=== PATIENT | male | born 1990 | race Caucasian/White ===

== ENCOUNTER 2021-10-08 11:38 | Emergency (ER) | payer OTHER ==
[~2021-10-08] VITALS: Ht 180.3 cm; Wt 68.0 kg
[2021-10-08 12:21] LABS: BASOPHILS ABSOLUTE AUTO 0.02 K/mm3 (0.00-0.23); BASOPHILS PERCENT AUTO 0 % (0-2); EOSINOPHILS ABSOLUTE AUTO 0.01 K/mm3 (0.00-0.68); EOSINOPHILS PERCENT AUTO 0 % (0-6); Hematocrit 46.6 % (37.0-53.0); Hemoglobin 15.4 g/dL (13.5-17.5); IMMATURE GRAN ABSOLUTE AUTO 0.03 K/mm3 (0.00-0.10); IMMATURE GRAN PERCENT AUTO 0 % (0-1); LYMPHOCYTES ABSOLUTE AUTO 0.89 K/mm3 (0.84-5.20); LYMPHOCYTES PERCENT AUTO 7 % (21-46); MONOCYTES ABSOLUTE AUTO 0.96 K/mm3 (0.16-1.47); MONOCYTES PERCENT AUTO 8 % (4-13); Mean Corpuscular HGB 29.8 pg (26.0-34.0); Mean Corpuscular Volume 90 fL (80-100); Mean Platelet Volume 9.7 fL (9.1-12.4); NEUTROPHILS ABSOLUTE AUTO 10.25 K/mm3 (1.96-9.15); NEUTROPHILS PERCENT AUTO 84 % (41-73); Platelet Count 294 K/mm3 (150-400); RDW Coefficient Variation 12.4 % (11.7-14.2); RDW Standard Deviation 41.2 fL (35.1-46.3); Red Blood Cell Count 5.17 M/mm3 (4.30-5.90); White Blood Cell Count 12.16 K/mm3 (4.00-11.30)
[2021-10-08 12:33] LABS: Alanine Aminotransfer (ALT/SGP 42 U/L (12-78); Albumin, Blood 4.1 g/dL (3.4-5.0); Albumin/Globulin Ratio 1.1 (0.8-1.8); Alk Phos 79 U/L (50-136); Anion Gap 10 mmol/L (6-16); Aspartate Aminotrans (AST/SGOT 22 U/L (12-37); Bilirubin, Total 0.2 mg/dL (0.1-1.0); Blood Urea Nitrogen 6 mg/dL (8-24); Bun/Creatinine Ratio 9.6 (12.0-20.0); CO2, Blood 28 mmol/L (21-32); Calcium, Blood 9.4 mg/dL (8.5-10.1); Chloride, Blood 106 mmol/L (98-108); Creatinine, Blood 0.62 mg/dL (0.60-1.20); Globulin, Blood 3.8 g/dL (2.2-4.0); Glomerular Filtration Rate >60 (60-); Glucose, Blood 81 mg/dL (70-99); Potassium, Blood 3.2 mmol/L (3.5-5.5); Sodium, Blood 144 mmol/L (136-145); Total Protein, Blood 7.9 g/dL (6.4-8.2)
== END 2021-10-08 13:22 | disposition left against medical advice (07) ==
LOC: ER 11:38
PROVIDERS: Physician Assistant
DX: Z53.21 Procedure and treatment not carried out due to patient leaving prior to being seen by health care provider (principal)
CPT/HCPCS: 80053; 83690; 85025

== ENCOUNTER → 2021-11-07 | Outpatient (CLI) | payer OTHER ==
[2021-11-09 13:12] LABS: COTININE Negative ng/mL (Cutoff=300)
== END | disposition home or self-care (01) ==
LOC: LAB 09:40 → LAB SHORT 09:40
PROVIDERS: Family Medicine
DX: K40.20 Bilateral inguinal hernia, without obstruction or gangrene, not specified as recurrent (principal)

== ENCOUNTER 2022-01-18 11:17 | Day surgery (SDC) | payer OTHER ==
[~2022-01-18] VITALS: Ht 180.3 cm; Wt 72.2 kg
--- NOTE | 2022-01-18 13:02 | NUR ---
History, Chart, Medications and Allergies reviewed before start of procedure. Patient confirms NPO status and agrees with scheduled surgery. Lungs clear T/O to Auscultation. Patient States Post-Procedure ride home has been arranged with a friend.
--- NOTE | 2022-01-18 13:27 | NUR ---
PATIENT REMOVED PIERCINGS AND RING AND PLACED IN HIS PATIENT BELONGING BAG.
--- NOTE | 2022-01-18 16:17 | NUR ---
01/18/22 1617 Edd Simmons 150CC CLEAR YELLOW URINE IN REYES BAG UPON DC. EVERARDO MARTINEZ PLACED AT END OF CASE PER .
--- NOTE | 2022-01-18 18:06 | NUR ---
Discharge instructions reviewed with patient. Patient verbalizes understanding. Copy given to patient to take home. Dressing to procedure site clean, dry, intact with no visible drainage, swelling, erythema or bruising noted. Patient States Post-Procedure ride home has been arranged. Discharged via wheelchair to private car for ride home. IV DCD CATH INTACT SITE CLEAR
== END 2022-01-18 23:36 | disposition home or self-care (01) ==
LOC: ORSCMMR 11:17 → ORD 12:30 → ORSCMMR 12:30
PROVIDERS: Surgery
PROC: 0YUA4JZ Supplement Bilateral Inguinal Region with Synthetic Substitute, Percutaneous Endoscopic Approach (ICD-10-PCS; principal; 2022-01-18 12:30)
PROC: 8E0W4CZ Robotic Assisted Procedure of Trunk Region, Percutaneous Endoscopic Approach (ICD-10-PCS; principal; 2022-01-18 12:30)
DX: K40.20 Bilateral inguinal hernia, without obstruction or gangrene, not specified as recurrent (principal); F17.211 Nicotine dependence, cigarettes, in remission
CPT/HCPCS: 49650; S2900; A9270; C1781; J0690; J1100; J1885; J2250; J2405; J2704; J3010; J7120

== ENCOUNTER → 2022-11-19 | Outpatient (CLI) | payer OTHER | END | disposition home or self-care (01) | LOC: LAB 17:57 → LAB SHORT 17:57 | DX: L03.116 Cellulitis of left lower limb (principal) | CPT/HCPCS: 87070; 87205 ==

== ENCOUNTER 2022-12-01 21:43 | Inpatient (IN) | payer OTHER ==
[~2022-12-01] VITALS: Ht 177.8 cm; Wt 72.4 kg
[2022-12-02 00:34] LABS: BASOPHILS ABSOLUTE AUTO 0.01 K/mm3 (0.00-0.23); BASOPHILS PERCENT AUTO 0 % (0-2); EOSINOPHILS PERCENT AUTO 1 % (0-6); Hematocrit 40.9 % (37.0-53.0); Hemoglobin 13.5 g/dL (13.5-17.5); IMMATURE GRAN ABSOLUTE AUTO 0.06 K/mm3 (0.00-0.10); IMMATURE GRAN PERCENT AUTO 1 % (0-1); LYMPHOCYTES ABSOLUTE AUTO 1.47 K/mm3 (0.84-5.20); LYMPHOCYTES PERCENT AUTO 14 % (21-46); MONOCYTES ABSOLUTE AUTO 1.49 K/mm3 (0.16-1.47); MONOCYTES PERCENT AUTO 14 % (4-13); Mean Corpuscular HGB 29.9 pg (26.0-34.0); Mean Corpuscular Volume 91 fL (80-100); Mean Platelet Volume 9.5 fL (9.1-12.4); NEUTROPHILS ABSOLUTE AUTO 7.63 K/mm3 (1.96-9.15); NEUTROPHILS PERCENT AUTO 71 % (41-73); Platelet Count 320 K/mm3 (150-400); RDW Coefficient Variation 13.9 % (11.7-14.2); RDW Standard Deviation 46.5 fL (35.1-46.3); Red Blood Cell Count 4.52 M/mm3 (4.30-5.90); White Blood Cell Count 10.76 K/mm3 (4.00-11.30)
[2022-12-02 00:54] LABS: Albumin, Blood 3.8 g/dL (3.4-5.0); Bilirubin, Total 0.2 mg/dL (0.1-1.0); Bun/Creatinine Ratio 15.7 (12.0-20.0); Calcium, Blood 9.1 mg/dL (8.5-10.1); Creatinine, Blood 0.96 mg/dL (0.60-1.20); Globulin, Blood 3.8 g/dL (2.2-4.0); Total Protein, Blood 7.6 g/dL (6.4-8.2)
[2022-12-02 02:42] VITALS: BP 136/70
[2022-12-02 06:38] LABS: BASOPHILS ABSOLUTE AUTO 0.02 K/mm3 (0.00-0.23); BASOPHILS PERCENT AUTO 0 % (0-2); EOSINOPHILS ABSOLUTE AUTO 0.07 K/mm3 (0.00-0.68); EOSINOPHILS PERCENT AUTO 1 % (0-6); Hematocrit 38.6 % (37.0-53.0); Hemoglobin 12.7 g/dL (13.5-17.5); IMMATURE GRAN ABSOLUTE AUTO 0.04 K/mm3 (0.00-0.10); IMMATURE GRAN PERCENT AUTO 1 % (0-1); LYMPHOCYTES ABSOLUTE AUTO 1.77 K/mm3 (0.84-5.20); LYMPHOCYTES PERCENT AUTO 20 % (21-46); MONOCYTES ABSOLUTE AUTO 1.27 K/mm3 (0.16-1.47); MONOCYTES PERCENT AUTO 15 % (4-13); Mean Corpuscular HGB 29.5 pg (26.0-34.0); Mean Corpuscular HGB Conc 32.9 g/dL (31.5-36.5); Mean Corpuscular Volume 90 fL (80-100); Mean Platelet Volume 9.3 fL (9.1-12.4); NEUTROPHILS ABSOLUTE AUTO 5.58 K/mm3 (1.96-9.15); NEUTROPHILS PERCENT AUTO 64 % (41-73); Platelet Count 309 K/mm3 (150-400); RDW Coefficient Variation 13.8 % (11.7-14.2); RDW Standard Deviation 45.5 fL (35.1-46.3); White Blood Cell Count 8.75 K/mm3 (4.00-11.30)
[2022-12-02 07:01] VITALS: BP 111/65
[2022-12-02 07:12] LABS: Albumin, Blood 3.4 g/dL (3.4-5.0); Bilirubin, Total 0.2 mg/dL (0.1-1.0); Bun/Creatinine Ratio 15.6 (12.0-20.0); Calcium, Blood 9.1 mg/dL (8.5-10.1); Creatinine, Blood 0.84 mg/dL (0.60-1.20); Globulin, Blood 3.4 g/dL (2.2-4.0); Potassium, Blood 4.3 mmol/L (3.5-5.5); Total Protein, Blood 6.8 g/dL (6.4-8.2)
--- NOTE | 2022-12-02 07:47 | NUR ---
SUMMARY ADMIT FOR CELLULITIS LOWER EXT.PT SLEEPY,BUT ALERT WHEN AWAKE.PAIN CONTROL ADEQUATE.
[2022-12-02 15:11] VITALS: BP 106/57
--- NOTE | 2022-12-02 17:40 | NUR ---
SUMMARY PT HAS SLEPT MOST OF THE DAY, IV ABX ORDERED, INDEPENDENT TO THE BATHROOM AND IN ROOM, LLE ELEVATED ON PILLOWS PER DR. BANEGAS, DENIES ANY NUMBNESS OR TINGLING, NO ACUTE CHANGES THIS SHIFT, REPORT GIVEN TO SELENE CORONA.
[2022-12-02 19:45] VITALS: BP 148/61
[2022-12-02 23:08] LABS: Vancomycin, Trough 11.1 ug/mL (5.0-10.0)
[2022-12-03 03:54] LABS: Hematocrit 42.3 % (37.0-53.0); Hemoglobin 14.3 g/dL (13.5-17.5); Mean Corpuscular HGB 29.6 pg (26.0-34.0); Mean Corpuscular HGB Conc 33.8 g/dL (31.5-36.5); Mean Corpuscular Volume 88 fL (80-100); Mean Platelet Volume 9.3 fL (9.1-12.4); Platelet Count 341 K/mm3 (150-400); RDW Coefficient Variation 13.4 % (11.7-14.2); RDW Standard Deviation 43.5 fL (35.1-46.3); Red Blood Cell Count 4.83 M/mm3 (4.30-5.90); White Blood Cell Count 13.94 K/mm3 (4.00-11.30)
[2022-12-03 04:38] VITALS: BP 132/76
--- NOTE | 2022-12-03 06:00 | NUR ---
PT VSS T/O NIGHT. NO SIG CHANGES IN REDNESS OR SWELLING. ELEVATION ENC WHILE IN BED. PT DENIED PAIN/N/T, CAP REFILL WNL. PT AMB INDEP IN ROOM, LISA WELL. IV ABX CONT PER ORDERS.
[2022-12-03 07:56] VITALS: BP 112/59
[2022-12-03] MEDS ORDERED: CEFD300 PO (10:19)
[2022-12-03] MEDS ORDERED: SULTRIDS PO (10:27)
[2022-12-03 15:40] VITALS: BP 125/74
--- NOTE | 2022-12-03 18:32 | NUR ---
SUMMARY CONT. IV ABX, REDNESS ON LLE APPEARS TO HAVE DECREASED FROM MARKED AREA, LLE ELEVATED ON PILLOWS WHILE IN BED MOST OF THE TIME, ENCOURAGED TO AMBULATE IN THE HALLS BUT PT ONLY WANTED TO WALK IN THE ROOM, ATTEMPTED TO TAKE A SHOWER BUT THERE WAS NO HOT WATER, PT REFUSED THE REST OF THE DAY, PT REQUESTED SLEEP AID FOR TONIGHT, STATES [facility] IS NOT WORKING, DR. BANEGAS NOTIFIED EARLIER TODAY, NO ORDERS NOTED, NNEKA MICHAEL CALLED BUT STATES DR. BANEGAS IS STILL OUT[employer]ENT. DR. BANEGAS CALLED AND DIDN'T ANSWER, LEFT A MESSAGE TO RETURN CALL, WILL REPORT TO SUSHILA RN.
[2022-12-03 19:28] VITALS: BP 125/67
[2022-12-04 00:16] LABS: Vancomycin, Trough 13.9 ug/mL (5.0-10.0)
[2022-12-04 04:12] VITALS: BP 122/77
[2022-12-04 04:55] LABS: Hematocrit 42.5 % (37.0-53.0); Hemoglobin 14.5 g/dL (13.5-17.5); Mean Corpuscular HGB 29.5 pg (26.0-34.0); Mean Corpuscular HGB Conc 34.1 g/dL (31.5-36.5); Mean Corpuscular Volume 86 fL (80-100); Mean Platelet Volume 9.5 fL (9.1-12.4); Platelet Count 368 K/mm3 (150-400); RDW Coefficient Variation 13.6 % (11.7-14.2); RDW Standard Deviation 43.1 fL (35.1-46.3); Red Blood Cell Count 4.92 M/mm3 (4.30-5.90); White Blood Cell Count 15.33 K/mm3 (4.00-11.30)
--- NOTE | 2022-12-04 06:00 | NUR ---
PT VSS T/O NIGHT. LLE REDNESS LOCALIZED TO POSTERIOR CALF, APPEARS TO BE IMPROVING, NO SWELLING NOTED. PT DENIED N/T, CAP REFILL WNL. PT DENIED LLE PAIN, MED PER EMAR FOR BACK PAIN. PT UP INDEP IN ROOM, LISA PO, IS VOIDING URINE W/O DIFFICULTY, REP LOOSE STOOL. IVF AND ABX CONT PER EMAR, PT EAGER TO D/C HOME.
[2022-12-04 07:13] VITALS: BP 126/72
[2022-12-04] MEDS ORDERED: VISBIOME 112.51 EACH PO (09:50)
[2022-12-04] MEDS ORDERED: IBUP400 PO (09:50)
--- NOTE | 2022-12-04 11:26 | NUR ---
DISCHARGE: PACKET PRINTED AND PT EDUCATED. [id number] BY SELENE CARRILLO. PT DENIED NEED FOR WHEELCHAIR AND WALKED OFF UNIT WITH FAMILY AT ABOUT 0910
== END 2022-12-04 10:10 | disposition home or self-care (01) | DRG 603 ==
LOC: ER 21:43 → SURS 12-02 01:52
PROVIDERS: Internal Medicine; Student in an Organized Health Care Education/Training Program; ADMIT Student in an Organized Health Care Education/Training Program
DX: L03.116 Cellulitis of left lower limb (principal); Z98.890 Other specified postprocedural states
CPT/HCPCS: 36415; 73701; 80053; 80202; 83605; 85025; 85027; 93971; 96374-59; 96375; 99284-25; A9270; J0690; J1650; J3370; J7050; J7120; Q9967

== ENCOUNTER 2023-01-01 20:19 | Emergency (ER) | payer OTHER ==
[~2023-01-01] VITALS: Ht 180.3 cm; Wt 72.6 kg
[~2023-01-01 20:19] MED LIST: CEFD300 PO; IBUP400 PO; SULTRIDS PO; VISBIOME 112.51 EACH PO
[2023-01-01 20:38] VITALS: BP 136/69
[2023-01-01 20:56] LABS: BASOPHILS ABSOLUTE AUTO 0.01 K/mm3 (0.00-0.23); BASOPHILS PERCENT AUTO 0 % (0-2); EOSINOPHILS ABSOLUTE AUTO 0.13 K/mm3 (0.00-0.68); EOSINOPHILS PERCENT AUTO 3 % (0-6); Hemoglobin 12.1 g/dL (13.5-17.5); IMMATURE GRAN ABSOLUTE AUTO 0.01 K/mm3 (0.00-0.10); IMMATURE GRAN PERCENT AUTO 0 % (0-1); LYMPHOCYTES ABSOLUTE AUTO 2.06 K/mm3 (0.84-5.20); LYMPHOCYTES PERCENT AUTO 41 % (21-46); MONOCYTES ABSOLUTE AUTO 0.61 K/mm3 (0.16-1.47); MONOCYTES PERCENT AUTO 12 % (4-13); Mean Corpuscular HGB 29.7 pg (26.0-34.0); Mean Corpuscular HGB Conc 32.7 g/dL (31.5-36.5); Mean Corpuscular Volume 91 fL (80-100); Mean Platelet Volume 9.8 fL (9.1-12.4); NEUTROPHILS ABSOLUTE AUTO 2.26 K/mm3 (1.96-9.15); NEUTROPHILS PERCENT AUTO 44 % (41-73); Platelet Count 197 K/mm3 (150-400); RDW Coefficient Variation 13.5 % (11.7-14.2); Red Blood Cell Count 4.08 M/mm3 (4.30-5.90); White Blood Cell Count 5.08 K/mm3 (4.00-11.30)
[2023-01-01 21:15] LABS: Albumin/Globulin Ratio 1.2 (0.8-1.8); Bilirubin, Total 0.1 mg/dL (0.1-1.0); Bun/Creatinine Ratio 17.9 (12.0-20.0); Calcium, Blood 9.2 mg/dL (8.5-10.1); Creatinine, Blood 0.73 mg/dL (0.60-1.20); Globulin, Blood 3.2 g/dL (2.2-4.0); Potassium, Blood 3.6 mmol/L (3.5-5.5); Total Protein, Blood 7.2 g/dL (6.4-8.2)
[2023-01-01] MEDS ORDERED: Bactrim Ds Tab1 EACH PO (21:52)
[2023-01-01] MEDS ORDERED: CEPH500 PO (21:52)
== END 2023-01-01 22:04 | disposition home or self-care (01) ==
LOC: ER 20:19
PROVIDERS: Physician Assistant
DX: R60.0 Localized edema (principal); Z79.899 Other long term (current) drug therapy
CPT/HCPCS: 80053; 85025; 99283